=== PATIENT | female | born 1985 | race African-American/Black ===

== ENCOUNTER 2018-11-07 08:48 | Emergency (ER) | payer MEDICAID ==
[~2018-11-07] VITALS: Ht 160 cm; Wt 76.0 kg
[~2018-11-07 08:48] MED LIST: SERT25TA PO
[2018-11-07] MEDS ORDERED: IBUPROFEN 600MG TABLET PO NR (09:57)
[2018-11-07 10:35] VITALS: BP 147/77
== END 2018-11-07 10:38 | disposition home or self-care (01) ==
LOC: ER 08:48
DX: K04.7 Periapical abscess without sinus (principal); K02.9 Dental caries, unspecified; J45.909 Unspecified asthma, uncomplicated; R01.1 Cardiac murmur, unspecified; Z90.49 Acquired absence of other specified parts of digestive tract; Z79.899 Other long term (current) drug therapy
CPT/HCPCS: 99283

== ENCOUNTER 2018-11-13 12:17 | Emergency (ER) | payer MEDICAID ==
[~2018-11-13] VITALS: Ht 162.6 cm; Wt 73.0 kg
[2018-11-13 15:46] VITALS: BP 122/65
== END 2018-11-13 15:49 | disposition home or self-care (01) ==
LOC: ER 12:17
DX: K04.7 Periapical abscess without sinus (principal)
CPT/HCPCS: 99283

== ENCOUNTER 2019-05-28 14:32 | Emergency (ER) | payer MEDICAID ==
[~2019-05-28] VITALS: Ht 152.4 cm; Wt 80.0 kg
[2019-05-28] MEDS ORDERED: ALBUTEROL (0.083%) 2.5MG/3ML NEB HHN STA (15:44)
[2019-05-28] MEDS ORDERED: LORAZEPAM 0.5MG TABLET PO ONE (15:45)
[2019-05-28 16:31] LABS: BASOPHILS % 0.4 % (0.0-2.0); EOSINOPHILS % 0.3 % (0.0-5.0); HEMATOCRIT. 40.2 % (36.0-48.0); HEMOGLOBIN. 13.3 g/dL (12.0-16.0); MEAN CORPUSCULAR HEMOGLOBIN 27.3 pg (28.0-32.0); MEAN CORPUSCULAR VOLUME 82.5 fL (81.0-99.0); MEAN PLATELET VOLUME 8.9 fl (7.4-10.4); MONOCYTES % 7.5 % (2.0-8.0); NEUTROPHILS % 73.8 % (40.0-76.0); PLATELET 275 x1000/uL (130-400); RED BLOOD CELL COUNT 4.88 mill/uL (4.2-5.4); RED CELL DISTRIBUTION WIDTH 14.2 % (11.6-14.6)
[2019-05-28 16:40] LABS: HCG SCREEN NEGATIVE
[2019-05-28 16:50] LABS: CHLORIDE 108 mEq/L (98-107)
[2019-05-28] MEDS ORDERED: POTASSIUM CHLORIDE 20MEQ TABLET SR PO ONE (17:00)
[2019-05-28 17:37] VITALS: BP 122/78
== END 2019-05-28 17:37 | disposition home or self-care (01) ==
LOC: ER 14:32
DX: J45.901 Unspecified asthma with (acute) exacerbation (principal); R20.0 Anesthesia of skin; E87.6 Hypokalemia
CPT/HCPCS: 36415; 71045; 80053; 84703; 85025; 93005; 94640; 99284; J7611; Z7610